=== PATIENT | male | born 1950 | race Caucasian/White ===

== ENCOUNTER 2024-08-14 15:17 | Inpatient (IN) | payer MEDICARE, OTHER ==
[~2024-08-14 15:17] MED LIST: Iopamidol-370 76% 500 ML MDV (1 ML CHARGE) ONE
[2024-08-14 15:56] LABS: #Basophils 0.05 10x3/uL (0.0-0.2); %Basophils 0.4 % (0.0-1.0); %Eosinophils 2.8 % (0.0-10.0); %Lymphocytes 15.9 % (21.0-51.0); %Monocytes 9.7 % (0.0-10.0); %Neutrophils 70.8 % (42.0-75.0); Hematocrit 42.1 % (42.0-52.0); Hemoglobin 14.5 g/dL (14.0-18.0); Mean Corpuscular HGB CONC 34.4 g/dL (32.0-36.0); Mean Corpuscular Hemoglobin 31.9 pg (27.0-31.0); Mean Corpuscular Volume 92.5 fL (78.0-98.0); Mean Platelet Volume 8.6 fL (7.4-10.4); Platelet Count 427 10x3/uL (130-400); RBC Distribution Width 12.7 % (11.5-14.5); Red Blood Cell (RBC) Count 4.55 mill/uL (4.70-6.10)
[2024-08-14 16:13] LABS: ALT (SGPT) 11 U/L (8-55); AST (SGOT) 17 U/L (5-34); Albumin 2.9 g/dL (3.4-4.8); Alkaline Phosphatase 64 U/L (40-110); Anion Gap 16 mmol/L (10-20); BUN (Urea Nitrogen) 10 mg/dL (8.4-25.7); Bilirubin, Total 0.6 mg/dL (0.2-1.2); Calc. Creatinine Clearance 0 mL/min (70-130); Calcium 8.5 mg/dL (7.8-10.44); Carbon Dioxide 22 mmol/L (23-31); Chloride 103 mmol/L (98-107); Estimated GFR 77; Globulin 2.5 g/dL (2.4-3.5); Glucose 97 mg/dL (83-110); Lipase 8 U/L (8-78); Magnesium 1.9 mg/dL (1.6-2.6); Potassium 4.5 mmol/L (3.5-5.1); Protein, Total 5.4 g/dL (5.8-8.1); Sodium 136 mmol/L (136-145)
[2024-08-14 16:17] LABS: Troponin I Less than 0.010 ng/mL (< 0.028)
[2024-08-14 17:24] LABS: Fluid, Triglycerides 32 mg/dL (Not Available); Pleural Fluid, Amylase Less than 30 U/L (Not Available); Pleural Fluid, Glucose 78 mg/dL; Pleural Fluid, LDH 517 U/L (Not Available); Pleural Fluid, Protein 3.7 g/dL
[2024-08-14 17:29] LABS: RBC Count-Automated (BF) 3212 /cu.mm; WBC/Nucleated-Auto (BF) 1979 /cu.mm
[2024-08-14 17:32] LABS: Fluid, pH - Pleural Fld Greater than 7.500 (7.60 - 7.66)
[2024-08-14 17:33] LABS: BF Color Yellow; Body Fluid Source Thoracentesis Fluid; Clarity Hazy (Clear); Tube # EDTA
[2024-08-14 18:36] LABS: BF Segmented Neutrophils 65 %; Cell Count Non Hematic 9 %; Eosinophils 1 %; Lymphocytes 25 %
[2024-08-14] MEDS ORDERED: Ondansetron ODT 4 MG TAB PO PRN (19:02)
[2024-08-14] MEDS ORDERED: Acetaminophen 650 MG Suppository PR PRN (19:02)
[2024-08-14] MEDS ORDERED: Ipratropium/Albuterol 3 ML NEB NEB PRN (20:39)
[2024-08-14 22:37] VITALS: BMI 28.5
[2024-08-14] MEDS: Acetaminophen 325 MG TAB PO PRN (23:15)
[2024-08-14] MEDS: Famotidine 20 MG TAB PO SCH (23:15)
[2024-08-14] MEDS: traMADol HCl 50 MG TAB PO PRN (23:17)
[2024-08-15] MEDS: Tamsulosin HCl 0.4 MG CAP PO SCH ×2 (00:54→22:56)
[2024-08-15 05:34] LABS: #Basophils 0.05 10x3/uL (0.0-0.2); %Basophils 0.4 % (0.0-1.0); %Eosinophils 4.7 % (0.0-10.0); %Lymphocytes 19.9 % (21.0-51.0); %Monocytes 12.7 % (0.0-10.0); Hematocrit 40.3 % (42.0-52.0); Hemoglobin 13.6 g/dL (14.0-18.0); Mean Corpuscular HGB CONC 33.7 g/dL (32.0-36.0); Mean Corpuscular Hemoglobin 31.3 pg (27.0-31.0); Mean Corpuscular Volume 92.6 fL (78.0-98.0); Platelet Count 373 10x3/uL (130-400); RBC Distribution Width 12.7 % (11.5-14.5); Red Blood Cell (RBC) Count 4.35 mill/uL (4.70-6.10)
[2024-08-15 06:09] LABS: Anion Gap 12 mmol/L (10-20); BUN (Urea Nitrogen) 11 mg/dL (8.4-25.7); Calc. Creatinine Clearance 79 mL/min (70-130); Calcium 8.3 mg/dL (7.8-10.44); Carbon Dioxide 26 mmol/L (23-31); Chloride 104 mmol/L (98-107); Estimated GFR 79; Glucose 108 mg/dL (83-110); Potassium 4.1 mmol/L (3.5-5.1); Sodium 138 mmol/L (136-145)
[2024-08-15] MEDS: Sodium Chloride 0.9% 500 ML IV SCH (06:45)
[2024-08-15] MEDS: Enoxaparin 40 MG (0.4 mL) SYRINGE SC SCH (08:29)
[2024-08-15 12:27] VITALS: BMI 28.5
[2024-08-15 14:41] LABS: Bacteria/HPF None Seen HPF (None Seen); Bilirubin Negative (Negative); Blood, Urine Trace (Negative); Clarity Clear (Clear); Glucose, Urine (Dipstick) Normal (Negative); Ketone, Urine Trace mg/dL (Negative); Leukocyte Negative Leu/uL (Negative); Nitrite Negative (Negative); Protein, Urine (Dipstick) 20 mg/dL (Neg-Trace); Specific Gravity, Urine 1.027 (1.002-1.036); Squamous Epithelial None Seen HPF (0-3); pH, Urine 6.5 (5.0-9.0)
[2024-08-16 05:21] LABS: Thyroid Stimulating Hormone 1.3405 uIU/mL (0.35-4.94)
[2024-08-16] MEDS: Levothyroxine Sodium 75 MCG TAB PO SCH (05:42)
[2024-08-16 06:49] LABS: Free T4 (Free Thyroxine) 0.96 ng/dL (0.70-1.48)
[2024-08-16] MEDS: Allopurinol 300 MG TAB PO SCH (08:54)
[2024-08-16] MEDS: FLUoxetine HCl 20 MG CAP PO SCH (08:54)
[2024-08-16] MEDS: BuPROPion XL 150 MG ER.TAB PO SCH (08:54)
[2024-08-16] MEDS: Tamsulosin HCl 0.4 MG CAP PO SCH (19:59)
[2024-08-16] MEDS: Calcium Carbonate 500 MG ChewTAB PO SCH (19:59)
[2024-08-17 05:41] LABS: #Basophils 0.05 10x3/uL (0.0-0.2); %Basophils 0.5 % (0.0-1.0); %Eosinophils 7.1 % (0.0-10.0); %Lymphocytes 17.1 % (21.0-51.0); %Monocytes 12.1 % (0.0-10.0); %Neutrophils 62.7 % (42.0-75.0); Hemoglobin 12.8 g/dL (14.0-18.0); Mean Corpuscular HGB CONC 33.7 g/dL (32.0-36.0); Mean Corpuscular Hemoglobin 31.6 pg (27.0-31.0); Mean Corpuscular Volume 93.8 fL (78.0-98.0); Mean Platelet Volume 9.1 fL (7.4-10.4); Platelet Count 340 10x3/uL (130-400); RBC Distribution Width 12.8 % (11.5-14.5); Red Blood Cell (RBC) Count 4.05 mill/uL (4.70-6.10)
[2024-08-17 06:05] LABS: Anion Gap 13 mmol/L (10-20); BUN (Urea Nitrogen) 16 mg/dL (8.4-25.7); Calc. Creatinine Clearance 100 mL/min (70-130); Calcium 8.2 mg/dL (7.8-10.44); Carbon Dioxide 22 mmol/L (23-31); Chloride 105 mmol/L (98-107); Estimated GFR 94; Glucose 103 mg/dL (83-110); Potassium 3.7 mmol/L (3.5-5.1); Sodium 136 mmol/L (136-145)
[2024-08-17 07:41] VITALS: TEMP 98.1
[2024-08-17 11:52] VITALS: BP 116/78
== END 2024-08-17 14:57 | disposition home or self-care (01) | DRG 187 ==
LOC: ERS 15:17 → T4-B 19:18
PROVIDERS: ADMIT Internal Medicine; ATTEND Internal Medicine
PROC: 0W9B30Z Drainage of Left Pleural Cavity with Drainage Device, Percutaneous Approach (ICD-10-PCS; principal; 2024-08-14)
DX: J90 Pleural effusion, not elsewhere classified (principal); R18.8 Other ascites; N40.0 Benign prostatic hyperplasia without lower urinary tract symptoms; E03.9 Hypothyroidism, unspecified; N28.89 Other specified disorders of kidney and ureter; M10.9 Gout, unspecified; E78.5 Hyperlipidemia, unspecified; Z85.828 Personal history of other malignant neoplasm of skin
CPT/HCPCS: 36415; 71045; 71260; 74177; 80048; 80053; 81001; 82150; 82945; 83605; 83615; 83690; 83735; 83880; 83986; 84157; 84439; 84443; 84478; 84481; 84484; 85025; 85060; 87116; 87206; 88112; 88305; 88341; 88342; 89051; 93005; 93306; J1650; J7030; Q9967

== ENCOUNTER 2024-08-23 01:07 | Inpatient (IN) | payer MEDICARE, OTHER ==
[2024-08-23 01:55] LABS: #Basophils 0.07 10x3/uL (0.0-0.2); %Basophils 0.6 % (0.0-1.0); %Eosinophils 5.3 % (0.0-10.0); %Lymphocytes 16.8 % (21.0-51.0); %Monocytes 13.1 % (0.0-10.0); %Neutrophils 63.6 % (42.0-75.0); Hematocrit 40.5 % (42.0-52.0); Hemoglobin 13.8 g/dL (14.0-18.0); Mean Corpuscular HGB CONC 34.1 g/dL (32.0-36.0); Mean Corpuscular Hemoglobin 31.7 pg (27.0-31.0); Mean Corpuscular Volume 92.9 fL (78.0-98.0); Mean Platelet Volume 8.7 fL (7.4-10.4); Platelet Count 465 10x3/uL (130-400); RBC Distribution Width 12.8 % (11.5-14.5); Red Blood Cell (RBC) Count 4.36 mill/uL (4.70-6.10)
[2024-08-23 02:09] LABS: ALT (SGPT) 19 U/L (8-55); AST (SGOT) 20 U/L (5-34); Albumin 2.8 g/dL (3.4-4.8); Alkaline Phosphatase 70 U/L (40-110); Anion Gap 16 mmol/L (10-20); BUN (Urea Nitrogen) 13 mg/dL (8.4-25.7); Bilirubin, Total 0.4 mg/dL (0.2-1.2); Calc. Creatinine Clearance 0 mL/min (70-130); Calcium 9.1 mg/dL (7.8-10.44); Carbon Dioxide 22 mmol/L (23-31); Chloride 102 mmol/L (98-107); Estimated GFR 81; Globulin 3.4 g/dL (2.4-3.5); Glucose 97 mg/dL (83-110); Potassium 4.4 mmol/L (3.5-5.1); Protein, Total 6.2 g/dL (5.8-8.1); Sodium 136 mmol/L (136-145)
[2024-08-23 02:16] LABS: Troponin I 0.015 ng/mL (< 0.028)
[2024-08-23] MEDS ORDERED: Ondansetron PF 4 MG/2 ML Vial IVP PRN (04:36)
[2024-08-23] MEDS ORDERED: Ondansetron ODT 4 MG TAB PO PRN (04:36)
[2024-08-23 05:02] VITALS: BMI 29.9
[2024-08-23] MEDS: Levothyroxine Sodium 75 MCG TAB PO SCH (06:02)
[2024-08-23] MEDS: BuPROPion XL 150 MG ER.TAB PO SCH (11:04)
[2024-08-23] MEDS: Allopurinol 300 MG TAB PO SCH (11:04)
[2024-08-23] MEDS: FLUoxetine HCl 20 MG CAP PO SCH (11:05)
[2024-08-23] MEDS: Acetaminophen 325 MG TAB PO PRN (11:11)
[2024-08-23] MEDS: FLU (Fluad Triv) TS24-25 (65UP)/MF59C/PF 45 MCG/0.5 ML Syringe IM ONE (11:32)
[2024-08-23] MEDS ORDERED: Ipratropium/Albuterol 3 ML NEB NEB PRN (18:51)
[2024-08-23] MEDS: Atorvastatin Calcium 10 MG TAB PO SCH (20:53)
[2024-08-23] MEDS: Tamsulosin HCl 0.4 MG CAP PO SCH (20:54)
[2024-08-24 05:26] LABS: #Basophils 0.06 10x3/uL (0.0-0.2); %Basophils 0.6 % (0.0-1.0); %Lymphocytes 16.8 % (21.0-51.0); %Monocytes 12.1 % (0.0-10.0); Hematocrit 36.8 % (42.0-52.0); Hemoglobin 12.4 g/dL (14.0-18.0); Mean Corpuscular HGB CONC 33.7 g/dL (32.0-36.0); Mean Corpuscular Hemoglobin 31.1 pg (27.0-31.0); Mean Corpuscular Volume 92.2 fL (78.0-98.0); Mean Platelet Volume 8.6 fL (7.4-10.4); Platelet Count 406 10x3/uL (130-400); Red Blood Cell (RBC) Count 3.99 mill/uL (4.70-6.10)
[2024-08-24 05:40] LABS: INR-International Normal Ratio 1.3; Prothrombin Time 16.2 sec (12.0-14.7)
[2024-08-24 05:41] LABS: PTT 38.8 sec (22.9-36.1)
[2024-08-24 05:42] LABS: Lactic Acid 0.79 mmol/L (0.5-2.2)
[2024-08-24 05:47] LABS: Anion Gap 12 mmol/L (10-20); BUN (Urea Nitrogen) 13 mg/dL (8.4-25.7); Calc. Creatinine Clearance 101 mL/min (70-130); Calcium 8.5 mg/dL (7.8-10.44); Carbon Dioxide 22 mmol/L (23-31); Chloride 105 mmol/L (98-107); Estimated GFR 93; Glucose 116 mg/dL (83-110); Sodium 135 mmol/L (136-145)
[2024-08-24] MEDS: Dextrose 5%-Lactated Ringers 1,000 ML IV SCH (06:09)
[2024-08-24] MEDS ORDERED: Bupivacaine PF 0.5% 30 ML VIAL ONE ×2 (06:42→10:02)
[2024-08-24] MEDS ORDERED: EPINEPHrine 1 MG/ML VIAL ONE ×2 (06:42→10:01)
[2024-08-24] MEDS ORDERED: fentaNYL PF 100 MCG/2 ML SYRINGE ONE (08:23)
[2024-08-24] MEDS ORDERED: PROPOFOL 20 ML ONE (08:23)
[2024-08-24] MEDS ORDERED: Rocuronium Bromide 10 MG/ML (10ML VIAL) ONE (08:24)
[2024-08-24] MEDS ORDERED: Ondansetron PF 4 MG/2 ML Vial ONE (08:24)
[2024-08-24] MEDS ORDERED: Lidocaine 1% PF 5 ML VIAL ONE (08:24)
[2024-08-24] MEDS ORDERED: Dexamethasone 20 MG/5 ML VIAL ONE (08:24)
[2024-08-24] MEDS ORDERED: CEFAZOLIN 2 GM VIAL ONE (10:39)
[2024-08-24] MEDS ORDERED: Lidocaine 2% 6 ML (Jelly) SYR ONE (11:06)
[2024-08-24] MEDS ORDERED: ePHEDrine Sulfate 50 MG/10 ML VIAL ONE (11:13)
[2024-08-24] MEDS ORDERED: Vasopressin 20 UNITS/ML VIAL ONE (11:16)
[2024-08-24] MEDS ORDERED: Albumin 25% 100 ML ONE (11:18)
[2024-08-24] MEDS ORDERED: SUGAMMADEX SODIUM 200 MG/2 ML VIAL ONE (11:33)
[2024-08-24] MEDS ORDERED: fentaNYL 50 mcg/mL 1 mL Vial ONE (11:40)
[2024-08-24] MEDS ORDERED: Promethazine HCl 25 MG/ML VIAL IM PRN (11:57)
[2024-08-24] MEDS ORDERED: HYDROmorphone 2 MG/ML VIAL SLOW IVP PRN (11:57)
[2024-08-24] MEDS ORDERED: Ondansetron HCl/PF 4 MG/2 ML Vial IVP PRN (11:57)
[2024-08-24] MEDS: CEFAZOLIN 2 GM in Sodium Chloride 0.9% 100 ML IVPB SCH (17:06)
[2024-08-24 17:32] VITALS: BMI 29.9
[2024-08-25 04:15] LABS: #Basophils Less than 0.03 10x3/uL (0.0-0.2); #Eosinophils Less than 0.03 10x3/uL (0.0-0.7); %Basophils 0.1 % (0.0-1.0); %Lymphocytes 7.8 % (21.0-51.0); %Monocytes 7.9 % (0.0-10.0); %Neutrophils 83.7 % (42.0-75.0); Hematocrit 36.9 % (42.0-52.0); Hemoglobin 12.4 g/dL (14.0-18.0); Mean Corpuscular HGB CONC 33.6 g/dL (32.0-36.0); Mean Corpuscular Hemoglobin 31.5 pg (27.0-31.0); Mean Corpuscular Volume 93.7 fL (78.0-98.0); Platelet Count 442 10x3/uL (130-400); RBC Distribution Width 12.9 % (11.5-14.5); Red Blood Cell (RBC) Count 3.94 mill/uL (4.70-6.10)
[2024-08-25 04:30] LABS: Anion Gap 14 mmol/L (10-20); BUN (Urea Nitrogen) 15 mg/dL (8.4-25.7); Calc. Creatinine Clearance 82 mL/min (70-130); Calcium 8.7 mg/dL (7.8-10.44); Carbon Dioxide 22 mmol/L (23-31); Chloride 106 mmol/L (98-107); Estimated GFR 79; Glucose 138 mg/dL (83-110); Potassium 4.9 mmol/L (3.5-5.1); Sodium 137 mmol/L (136-145)
[2024-08-25] MEDS ORDERED: Polyethylene Glycol 3350 17 GM Packet PO PRN (11:11)
[2024-08-25 16:22] VITALS: BP 108/71; TEMP 98.2
[2024-08-25] MEDS ORDERED: Senokot S 8.6-50 MG TAB PO SCH (21:00)
== END 2024-08-25 17:55 | disposition home or self-care (01) | DRG 981 ==
LOC: ERS 01:07 → 2SE 04:03
PROVIDERS: ADMIT Family Medicine; ATTEND Internal Medicine
PROC: 0BBP4ZX Excision of Left Pleura, Percutaneous Endoscopic Approach, Diagnostic (ICD-10-PCS; principal; 2024-08-24)
PROC: 0W9B40Z Drainage of Left Pleural Cavity with Drainage Device, Percutaneous Endoscopic Approach (ICD-10-PCS; 2024-08-24)
DX: C64.9 Malignant neoplasm of unspecified kidney, except renal pelvis (principal); J96.01 Acute respiratory failure with hypoxia; J91.0 Malignant pleural effusion; R18.8 Other ascites; C76.1 Malignant neoplasm of thorax; M10.9 Gout, unspecified; E03.9 Hypothyroidism, unspecified; Z51.5 Encounter for palliative care; E78.5 Hyperlipidemia, unspecified; N40.0 Benign prostatic hyperplasia without lower urinary tract symptoms; F10.90 Alcohol use, unspecified, uncomplicated; N28.9 Disorder of kidney and ureter, unspecified; F32.A Depression, unspecified; N18.2 Chronic kidney disease, stage 2 (mild); D63.1 Anemia in chronic kidney disease
CPT/HCPCS: 36415; 71045; 80048; 80053; 83605; 83880; 84484; 85025; 85610; 85730; 88305; 88341; 88342; 93005; J0171; J0665; J1100; J2405; J2704; J3010; P9047

== ENCOUNTER 2024-09-03 13:00 | Outpatient (CLI) | payer MEDICARE, OTHER | END 2024-09-03 13:01 | disposition home or self-care (01) | LOC: RAD 13:00 | PROVIDERS: ATTEND Thoracic Surgery (Cardiothoracic Vascular Surgery) | DX: J90 Pleural effusion, not elsewhere classified (principal); J98.4 Other disorders of lung; Z97.8 Presence of other specified devices | CPT/HCPCS: 71046 ==

== ENCOUNTER 2024-09-10 08:17 | Outpatient (CLI) | payer MEDICARE, OTHER | END 2024-09-10 08:18 | disposition home or self-care (01) | LOC: NM 08:17 | PROVIDERS: ATTEND Internal Medicine Hematology & Oncology | DX: C64.1 Malignant neoplasm of right kidney, except renal pelvis (principal) | CPT/HCPCS: 78306; A9503 ==